=== PATIENT | male | born 1995 | race Caucasian/White ===

== ENCOUNTER 2020-03-08 21:01 | Emergency (ER) | payer OTHER ==
[~2020-03-08] VITALS: Ht 175.3 cm; Wt 72.6 kg
[2020-03-09] MEDS ORDERED: SYMBICORT 16010.2 GM IH (01:01)
[2020-03-09] MEDS ORDERED: AIRBORNE EFFER1 EACH PO (01:01)
[2020-03-09] MEDS ORDERED: TESSALON PERLE100 M1 PO (01:01)
== END 2020-03-09 01:34 ==
LOC: ER 21:01
DX: B34.9 Viral infection, unspecified (principal); Z20.828 Contact with and (suspected) exposure to other viral communicable diseases